=== PATIENT | female | born 1995 | race Caucasian/White ===

== ENCOUNTER 2017-06-17 07:53 | Day surgery (SDC) | payer MEDICAID ==
[2017-06-17 08:09] VITALS: BMI 34.4
[2017-06-17] MEDS ORDERED: Propofol 10 mg/ml Inj (20 ML) ONE (09:55)
[2017-06-17 10:24] VITALS: TEMP 98.6
[2017-06-17] MEDS ORDERED: Albuterol 0.083% Inhal Sol (2.5 mg/3 mL) UD INH ONE (10:37)
[2017-06-17] MEDS ORDERED: Albuterol 0.083% Inhal Sol (2.5 mg/3 mL) UD ONE (10:40)
[2017-06-17 11:39] VITALS: BP 121/78; PULSE 73; RESP 20; O2SAT 100
== END 2017-06-17 11:12 | disposition home or self-care (01) ==
LOC: C.ENDO 07:53
PROVIDERS: ATTEND Internal Medicine
DX: K20.9 Esophagitis, unspecified (principal); K29.70 Gastritis, unspecified, without bleeding; K44.9 Diaphragmatic hernia without obstruction or gangrene
CPT/HCPCS: 43239; 84703; 88305; 88313; 88342; J2704